=== PATIENT | male | born 1945 | race Caucasian/White ===

== ENCOUNTER 2018-02-01 10:11 | Day surgery (SDC) | payer MEDICARE, BC ==
[~2018-02-01] VITALS: Ht 175.3 cm; Wt 108.5 kg
[2018-02-01] VITALS (11 sets, daily range): BP systolic 106–176; BP diastolic 48–87
[2018-02-01] MEDS ORDERED: LORazepam 0.5 MG tablet PO PRN (11:00)
[2018-02-01] MEDS ORDERED: nitroGLYCERIN 0.4mg SUBLingual tab SL PRN (11:00)
[2018-02-01] MEDS ORDERED: diphenhydrAMINE 25mg capsule PO PRN (11:00)
[2018-02-01] MEDS ORDERED: normal saline 1000ml 1,000 ML IV SCH (11:00)
[2018-02-01] MEDS ORDERED: iohexol 350 MG/ML 50ML vial IV ONE (11:42)
[2018-02-01] MEDS ORDERED: iohexol 350MG/ML 100ml bottle IV ONE (11:42)
[2018-02-01] MEDS ORDERED: LIDOcaine 1% 30ml preserv. free vial ONE (11:43)
[2018-02-01] MEDS ORDERED: ERGO500041 PO (11:46)
[2018-02-01] MEDS ORDERED: SIMV20TA5 PO (11:46)
[2018-02-01] MEDS ORDERED: VALS1TAB77 PO (11:46)
[2018-02-01] MEDS ORDERED: NITR0.4T51 SL (11:46)
[2018-02-01] MEDS ORDERED: HYDR-4069 PO (11:46)
[2018-02-01] MEDS ORDERED: FERR324T4 PO (11:46)
[2018-02-01] MEDS ORDERED: MAGN400C PO (11:46)
[2018-02-01] MEDS ORDERED: ASPI81TA52 PO (11:46)
[2018-02-01 12:15] LABS: BASOPHILS % (AUTO) 0.5 % (0-1); EOSINOPHILS # (AUTO) 0.1 X10'3 (0-0.9); EOSINOPHILS % (AUTO) 2.7 % (0-6); HEMATOCRIT 28.9 % (42.0-52.0); HEMOGLOBIN 9.8 g/dl (14.0-17.9); LYMPHOCYTES # (AUTO) 1.4 X10'3 (1.1-4.8); LYMPHOCYTES % (AUTO) 27.5 % (21-51); MEAN CORPUSCULAR HEMOGLOBIN 31.8 PG (27.0-31.0); MEAN CORPUSCULAR VOLUME 93.6 FL (78-98); MEAN PLATELET VOLUME 8.6 FL (7.4-10.4); MONOCYTES % (AUTO) 18.9 % (2-12); NEUTROPHILS # (AUTO) 2.6 X10'3 (1.8-7.7); NEUTROPHILS % (AUTO) 50.4 % (42-75); PLATELET COUNT 216 X10'3 (140-440); RED BLOOD COUNT 3.09 X10'6 (4.70-6.10); RED CELL DISTRIBUTION WIDTH 16.1 % (11.5-14.5); WHITE BLOOD COUNT 5.1 X10'3 (4.5-11.0)
[2018-02-01 12:24] LABS: PARTIAL THROMBOPLASTIN TIME 25 SECONDS (22-32); PROTHROMBIN TIME 10.6 SECONDS (9.0-12.0)
[2018-02-01 12:26] LABS: ANION GAP 12 (8-16); BLOOD UREA NITROGEN 33 MG/DL (7-18); CALCIUM 8.9 MG/DL (8.5-10.1); CHLORIDE 102 MMOL/L (99-107); CREATININE 2.06 MG/DL (0.60-1.10); GLUCOSE 90 MG/DL (70-104); POTASSIUM 3.8 MMOL/L (3.5-5.1); SODIUM 139 MMOL/L (135-145); TOTAL CARBON DIOXIDE 24.7 MMOL/L (24-32); eGFR 32 ML/MIN
[2018-02-01] MEDS ORDERED: fentaNYL/PF 50MCG/1 ML 2ML syringe ONE (12:27)
[2018-02-01] MEDS ORDERED: midazolam 2 mg/2 ml injection ONE (12:27)
[2018-02-01] MEDS ORDERED: diphenhydrAMINE 50 mg/ml inj ONE (12:27)
[2018-02-01] MEDS ORDERED: nitroGLYCERIN-Tridil 50MG/D5W 250 ML IV ONE (13:00)
== END 2018-02-01 19:00 | disposition home or self-care (01) ==
LOC: SSTAY O 10:11
PROVIDERS: ATTEND Internal Medicine Cardiovascular Disease
DX: I25.118 Atherosclerotic heart disease of native coronary artery with other forms of angina pectoris (principal); E66.9 Obesity, unspecified; I10 Essential (primary) hypertension; I49.1 Atrial premature depolarization; I73.9 Peripheral vascular disease, unspecified; G89.29 Other chronic pain; K21.9 Gastro-esophageal reflux disease without esophagitis; M19.90 Unspecified osteoarthritis, unspecified site; Z68.35 Body mass index [BMI] 35.0-35.9, adult; Z87.891 Personal history of nicotine dependence; Z90.89 Acquired absence of other organs; Z85.51 Personal history of malignant neoplasm of bladder; Z92.21 Personal history of antineoplastic chemotherapy; Z95.1 Presence of aortocoronary bypass graft; Z95.5 Presence of coronary angioplasty implant and graft; Z72.89 Other problems related to lifestyle; Z79.82 Long term (current) use of aspirin; Z79.01 Long term (current) use of anticoagulants; Z79.899 Other long term (current) drug therapy; Z98.890 Other specified postprocedural states
CPT/HCPCS: 36415; 71046; 80048; 85025; 85610; 85730; 93005; 93458; 99152; 99153; A6257; C1760; C1769; J1200; J1644; J2250; J3010; J3490; J7030; Q9967; A4620